=== PATIENT | female | born 1940 | race Caucasian/White ===

== ENCOUNTER → 2017-04-02 | Outpatient (CLI) | payer MEDICARE, OTHER ==
[~2017-04-02] MED LIST: DIPH25CA61 PO; HYDR-3240 PO; METH4TAB2 PO; METO25TA91 PO; OMEP40CA3 PO
[2017-04-02 10:59] LABS: HEMATOCRIT 39.5 % (34.6-47.8); HEMOGLOBIN 13.7 g/dL (11.7-16.4); WHITE BLOOD COUNT 3.9 x10^3/uL (3.4-10)
[2017-04-02 11:12] LABS: ASPARTATE AMINO TRANSFERASE 18 U/L (15-37); BLOOD UREA NITROGEN 24 mg/dL (7-18)
[2017-04-02 11:42] LABS: PATH.CAST-FLAG NOT PRESENT; SPERM-FLAG NOT PRESENT; SRC-FLAG NOT PRESENT; XTAL-FLAG NOT PRESENT; YLC-FLAG NOT PRESENT
== END | disposition home or self-care (01) ==
LOC: LAB 10:32
PROVIDERS: ATTEND Family Medicine
DX: Z00.01 Encounter for general adult medical examination with abnormal findings (principal); M25.50 Pain in unspecified joint; D64.9 Anemia, unspecified; E11.9 Type 2 diabetes mellitus without complications; R53.83 Other fatigue; E78.5 Hyperlipidemia, unspecified; E03.9 Hypothyroidism, unspecified
CPT/HCPCS: 36415; 80053; 80061; 81001; 83036; 84436; 84443; 84481; 85025; 87086

== ENCOUNTER → 2017-05-16 | Outpatient (CLI) | payer MEDICARE, OTHER ==
[2017-05-16 09:51] LABS: ALANINE AMINOTRANSFERASE 35 U/L (12-78); ALBUMIN 4.2 g/dL (3.4-5.0); ANION GAP 7 mmol/L (5-15); CALCIUM 9.1 mg/dL (8.5-10.1); CHLORIDE 105 mmol/L (98-107); CHOLESTEROL, TOTAL 188 mg/dL (140-239); CREATININE 1.37 mg/dL (0.55-1.02)
[2017-05-16 09:53] LABS: ALKALINE PHOSPHATASE 77 U/L (45-117); BILIRUBIN,TOTAL 0.8 mg/dL (0.2-1.0); CHOL/HDL RATIO 1.8; HDL CHOL % 55 % (28-40); HDL CHOLESTEROL (DIRECT) 104 mg/dL (40-60); LDL CHOLESTEROL,CALCULATED 57 mg/dL (54-169); LDL/HDL RATIO 0.5 (0.5-3.0); TRIGLYCERIDES 134 mg/dL (50-200); VLDL CHOLESTEROL 27 mg/dL (0-25)
== END ==
LOC: LAB 09:23
PROVIDERS: ATTEND Family Medicine
DX: E78.5 Hyperlipidemia, unspecified (principal)
CPT/HCPCS: 36415; 80053; 80061

== ENCOUNTER → 2017-11-30 | Outpatient (CLI) | payer MEDICARE, OTHER ==
[2017-11-30 09:43] LABS: MICROSCOPIC AUTO
[2017-11-30 09:45] LABS: CULTURE INDICATED? YES
[2017-11-30 09:51] LABS: ANION GAP 9 mmol/L (5-15); CALCIUM 8.5 mg/dL (8.5-10.1); CHLORIDE 111 mmol/L (98-107)
[2017-11-30 10:00] LABS: ALANINE AMINOTRANSFERASE 31 U/L (12-78); ALKALINE PHOSPHATASE 89 U/L (45-117); BILIRUBIN,TOTAL 0.7 mg/dL (0.2-1.0); CHOLESTEROL, TOTAL 154 mg/dL (140-239); CREATININE 0.99 mg/dL (0.55-1.02); HDL CHOL % 49 % (28-40); HDL CHOLESTEROL (DIRECT) 76 mg/dL (40-60); LDL CHOLESTEROL,CALCULATED 56 mg/dL (54-169); LDL/HDL RATIO 0.7 (0.5-3.0); T4 (THYROXINE) 11.1 mcg/dL (4.8-13.9); TOTAL PROTEIN 7.7 g/dL (6.4-8.2); TRIGLYCERIDES 110 mg/dL (50-200); VLDL CHOLESTEROL 22 mg/dL (0-25)
[2017-11-30 10:03] LABS: BASOPHILS # (AUTO) 0.01 x10^3/uL (0-0.1); BASOPHILS % (AUTO) 0 % (0-1); EOSINOPHILS # (AUTO) 0.04 x10^3/uL (0-0.4); EOSINOPHILS % (AUTO) 1 % (1-7); LYMPHOCYTES # (AUTO) 2.05 x10^3/uL (1-3.4); LYMPHOCYTES % (AUTO) 53 % (22-44); MD NO; MEAN CORPUSCULAR HEMOGLOBIN 31.2 pg (27.0-34.8); MEAN CORPUSCULAR HGB CONC 34.2 g/dL (32.4-35.8); MEAN CORPUSCULAR VOLUME 91.3 fL (80-100); MEAN PLATELET VOLUME 9.4 fL (7.4-10.4); MONOCYTES % (AUTO) 18 % (2-9); NEUTROPHILS # (AUTO) 1.09 x10^3/uL (1.8-6.8); NEUTROPHILS % (AUTO) 28 % (42-75); PLATELET COUNT 183 x10^3/uL (130-400); RED BLOOD COUNT 3.94 x10^6/uL (3.82-5.3); RED CELL DISTRIBUTION WIDTH 13.8 % (9.6-15.2)
== END | disposition home or self-care (01) ==
LOC: LAB 09:12
PROVIDERS: ATTEND Family Medicine
DX: M79.605 Pain in left leg (principal); D64.9 Anemia, unspecified; R35.0 Frequency of micturition; Z79.899 Other long term (current) drug therapy; Z88.0 Allergy status to penicillin
CPT/HCPCS: 36415; 80053; 80061; 81001; 84436; 84443; 84481; 85025; 87086

== ENCOUNTER 2018-01-17 14:49 | Observation (INO) | payer MEDICARE, OTHER ==
[~2018-01-17] VITALS: Ht 165.1 cm; Wt 70.5 kg
[2018-01-17] MEDS ORDERED: SODIUM CHLORIDE FLUSH 10ML SYR IVF ONE (15:30)
[2018-01-17 16:04] LABS: BASOPHILS # (AUTO) 0.01 x10^3/uL (0-0.1); BASOPHILS % (AUTO) 0 % (0-1); EOSINOPHILS # (AUTO) 0.02 x10^3/uL (0-0.4); EOSINOPHILS % (AUTO) 0 % (1-7); LYMPHOCYTES # (AUTO) 1.91 x10^3/uL (1-3.4); LYMPHOCYTES % (AUTO) 42 % (22-44); MD NO; MEAN CORPUSCULAR HEMOGLOBIN 30.5 pg (27.0-34.8); MEAN CORPUSCULAR HGB CONC 33.6 g/dL (32.4-35.8); MEAN CORPUSCULAR VOLUME 90.8 fL (80-100); MEAN PLATELET VOLUME 9.8 fL (7.4-10.4); MONOCYTES # (AUTO) 0.77 x10^3/uL (0.2-0.8); MONOCYTES % (AUTO) 17 % (2-9); NEUTROPHILS # (AUTO) 1.83 x10^3/uL (1.8-6.8); NEUTROPHILS % (AUTO) 40 % (42-75); PLATELET COUNT 222 x10^3/uL (130-400); RED BLOOD COUNT 4.09 x10^6/uL (3.82-5.3); RED CELL DISTRIBUTION WIDTH 13.2 % (9.6-15.2)
[2018-01-17 16:05] LABS: INTERNATIONAL NORMALIZED RATIO 0.97 (0.93-1.1); PROTHROMBIN TIME 10.1 Seconds (9.6-11.5)
[2018-01-17 16:07] LABS: ALBUMIN 4.2 g/dL (3.4-5.0); ANION GAP 11 mmol/L (5-15); CALCIUM 9.3 mg/dL (8.5-10.1); CHLORIDE 105 mmol/L (98-107)
[2018-01-17 16:10] LABS: ALANINE AMINOTRANSFERASE 22 U/L (12-78); ALKALINE PHOSPHATASE 101 U/L (45-117); BILIRUBIN,TOTAL 0.7 mg/dL (0.2-1.0); CREATININE 1.14 mg/dL (0.55-1.02); TOTAL PROTEIN 8.3 g/dL (6.4-8.2)
[2018-01-17 18:35] VITALS: BP 160/91
[2018-01-17] MEDS ORDERED: ACETAMINOPHEN 325 MG TABLET PO PRN (19:00)
[2018-01-17] MEDS ORDERED: LABETALOL 5MG/ML, 20ML IVPush PRN (19:00)
[2018-01-17] MEDS ORDERED: DOCUSATE 100 MG CAPSULE PO PRN (19:00)
[2018-01-17] MEDS ORDERED: hydrALAzine 20 MG/ML, 1ML IVPush PRN (19:00)
[2018-01-17] MEDS ORDERED: ONDANSETRON ODT 4 MG PO PRN (19:00)
[2018-01-17] MEDS: HEPARIN 5,000 UNITS/ML, 1ML SQ SCH (20:00)
[2018-01-17 20:04] VITALS: BP 154/83
[2018-01-17 22:18] LABS: MICROSCOPIC AUTO
[2018-01-17 22:19] LABS: CULTURE INDICATED? YES
[2018-01-18] VITALS (7 sets, daily range): BP systolic 113–178; BP diastolic 72–85
[2018-01-18] MEDS: HEPARIN 5,000 UNITS/ML, 1ML SQ SCH ×3 (05:13→20:06)
[2018-01-18] MEDS: METOPROLOL SUCCINATE 25 MG TAB.ER.24H PO SCH ×2 (05:13→08:59)
[2018-01-18 05:58] LABS: ANION GAP 9 mmol/L (5-15); CALCIUM 8.8 mg/dL (8.5-10.1); CHLORIDE 110 mmol/L (98-107); CHOLESTEROL, TOTAL 140 mg/dL (140-239); CREATININE 1.05 mg/dL (0.55-1.02)
[2018-01-18] MEDS ORDERED: METOPROLOL SUCCINATE 25 MG TAB.ER.24H PO SCH (06:00)
[2018-01-18 06:10] LABS: CHOL/HDL RATIO 2.1; HDL CHOL % 48 % (28-40); HDL CHOLESTEROL (DIRECT) 67 mg/dL (40-60); LDL CHOLESTEROL,CALCULATED 53 mg/dL (54-169); LDL/HDL RATIO 0.8 (0.5-3.0); TRIGLYCERIDES 98 mg/dL (50-200); VLDL CHOLESTEROL 20 mg/dL (0-25)
[2018-01-18] MEDS: OMEPRAZOLE 20 MG CAPSULE.DR PO SCH (08:58)
[2018-01-18] MEDS ORDERED: AMLODIPINE 5 MG TABLET ONE (14:53)
[2018-01-18] MEDS: AMLODIPINE 5 MG TABLET PO SCH (14:56)
[2018-01-19] MEDS: HEPARIN 5,000 UNITS/ML, 1ML SQ SCH ×2 (05:06→13:39)
[2018-01-19 05:07] VITALS: BP 145/81
[2018-01-19 08:05] VITALS: BP 150/78
[2018-01-19] MEDS: OMEPRAZOLE 20 MG CAPSULE.DR PO SCH (09:08)
[2018-01-19] MEDS: AMLODIPINE 5 MG TABLET PO SCH (09:12)
[2018-01-19 09:18] VITALS: BP 146/80
[2018-01-19] MEDS ORDERED: AMLODIPINE 5 MG TABLET PO ONE ×2 (09:30)
[2018-01-19] MEDS ORDERED: METOPROLOL SUCCINATE 25 MG TAB.ER.24H PO SCH (09:30)
[2018-01-19 11:59] VITALS: BP 151/76
[2018-01-19] MEDS ORDERED: METO25TA35 PO (13:44)
[2018-01-19] MEDS ORDERED: AMLO10TA6 PO ×2 (13:44→13:45)
== END 2018-01-19 14:45 | disposition home or self-care (01) ==
LOC: ED 16:42 → UNDOADMOB 16:58 → EDIP 16:58 → INTOOBSV 16:58 → EDIP 18:01 → 4EST 18:01 → EDIP 18:52
PROVIDERS: ADMIT Internal Medicine; ATTEND Internal Medicine
DX: I11.9 Hypertensive heart disease without heart failure (principal); I51.7 Cardiomegaly; R51 Headache; N17.0 Acute kidney failure with tubular necrosis; Z87.11 Personal history of peptic ulcer disease; Z90.49 Acquired absence of other specified parts of digestive tract; Z66 Do not resuscitate
CPT/HCPCS: 36415; 70450; 76770; 80048; 80053; 80061; 81001; 83735; 84443; 85025; 85610; 85730; 87086; 93005; 93306; 96372; 96374; 99285; G0378; J0360; J1644